=== PATIENT | male | born 1995 | race Caucasian/White ===

== ENCOUNTER 2020-05-20 11:56 | Emergency (ER) | payer OTHER ==
--- NOTE | 2020-05-20 14:14 | EDM.PDOC ---
ED HPI GENERAL MEDICAL PROBLEM - General Chief Complaint: Skin Complaint Stated Complaint: INTENSE ITCHING AFTER SWIMMING Time Seen by Provider: 05/20/20 14:00 Source of Information: Reports: Patient History Limitations: Reports: No Limitations - History of Present Illness INITIAL COMMENTS - FREE TEXT/NARRATIVE: This is a 24-year-old who presents with a rash. The rash is noted on his trunk and extremities. It is pruritic. The onset was this morning while he was swimming. He is accompanied by 2 other friends who have the same symptoms that also came on while swimming. He has no allergies. He is otherwise healthy. He otherwise feels well. - Related Data Allergies Allergy/AdvReac Type Severity Reaction Status Date / Time No Known Allergies Allergy Verified 05/20/20 13:44 Home Meds: Home Meds NK [No Known Home Meds] 05/20/20 [History] Past Medical History - Past Health History Medical/Surgical History: Denies Medical/Surgical History Social & Family History - Tobacco Use Smoking Status *Q: Never Smoker - Caffeine Use Caffeine Use: Reports: Coffee - Alcohol Use Days Per Week of Alcohol Use: 1 Number of Drinks Per Day: 2 Total Drinks Per Week: 2 - Recreational Drug Use Recreational Drug Use: No ED ROS GENERAL - Review of Systems Review Of Systems: See Below Constitutional: Reports: No Symptoms HEENT: Reports: No Symptoms Respiratory: Reports: No Symptoms Cardiovascular: Reports: No Symptoms Endocrine: Reports: No Symptoms GI/Abdominal: Reports: No Symptoms : Reports: No Symptoms Musculoskeletal: Reports: No Symptoms Skin: Reports: Rash Neurological: Reports: No Symptoms Psychiatric: Reports: No Symptoms Hematologic/Lymphatic: Reports: No Symptoms Immunologic: Reports: No Symptoms ED EXAM, SKIN/RASH Exam: See Below Exam Limited By: No Limitations General Appearance: Alert, No Apparent Distress Ears: Normal External Exam Nose: Normal Inspection Throat/Mouth: Normal Inspection Head: Atraumatic, Normocephalic Neck: Normal Inspection Respiratory/Chest: No Respiratory Distress Cardiovascular: Regular Rate, Rhythm GI/Abdominal: No Distention Rectal (Males) Exam: Normal Exam Back Exam: Normal Inspection Extremities: Normal Inspection Neurological: Alert, Oriented Psychiatric: Normal Affect, Normal Mood Skin: Rash (Scattered, small (<0.5 cm) papular rash on the extremities and trunk below the neck ) Course - Vital Signs Last Recorded V/S: Last Vital Signs Temp 36.1 C 05/20/20 13:45 Pulse 74 05/20/20 13:45 Resp 18 05/20/20 13:45 BP 138/93 H 05/20/20 13:45 Pulse Ox 97 05/20/20 13:45 - Re-Assessments/Exams Free Text/Narrative Re-Assessment/Exam: This is a 24-year-old male who presents with a pruritic scattered rash from the neck down. He is accompanied by 2 friends who have the same symptoms after [place]. The rash does not look like an allergic reaction or infectious. We are going to treat him symptomatically with antihistamines and topical corticosteroids to severely affected areas for swimmer's itch. They will return for any worsening of symptoms. 05/20/20 20:07 Departure - Departure Time of Disposition: 14:12 Disposition: Home, Self-Care 01 Clinical Impression: Pruritic rash - Discharge Information Instructions: Swimmer's Itch Referrals: PCP,None [Primary Care Provider] - Forms: ED Department Discharge Additional Instructions: Please use Benadryl, Claritin, Zyrtec or another antihistamine to control your itching rash. If your symptoms continue to worsen please be reevaluated by a physician as you may need to be placed on steroid or another treatment. Sepsis Event Note (ED) - Evaluation Sepsis Screening Result: No Definite Risk - Focused Exam Vital Signs: Vital Signs Temp Pulse Resp BP Pulse Ox 05/20/20 13:45 36.1 C 74 18 138/93 H 97
== END 2020-05-20 14:34 | disposition home or self-care (01) ==
LOC: JP.ED 11:56
DX: L29.9 Pruritus, unspecified (principal)
CPT/HCPCS: 99282